=== PATIENT | male | born 1990 | race Caucasian/White ===

== ENCOUNTER → 2021-03-22 | Emergency (ER) | payer BC, OTHER ==
[~2021-03-22] VITALS: Ht 177.8 cm; Wt 54.5 kg
[~2021-03-22] MED LIST: ONDA4TAB12 PO; PRED50TA PO
[2021-03-22 11:10] VITALS: BP 109/69
== END | disposition home or self-care (01) ==
LOC: ER 10:48
DX: M79.644 Pain in right finger(s) (principal); Z86.2 Personal history of diseases of the blood and blood-forming organs and certain disorders involving the immune mechanism; Z79.899 Other long term (current) drug therapy
CPT/HCPCS: 73140; 99283

== ENCOUNTER 2022-01-31 20:09 | Emergency (ER) | payer OTHER | END 2022-01-31 20:34 | disposition left against medical advice (07) | LOC: ER 20:09 | DX: Z00.8 Encounter for other general examination (principal); Z53.21 Procedure and treatment not carried out due to patient leaving prior to being seen by health care provider ==